=== PATIENT | male | born 1935 | race Caucasian/White ===

== ENCOUNTER → 2023-12-28 12:07 | Outpatient (REF) | payer OTHER, SELFPAY | LOC: RAD 12:07 | PROVIDERS: ATTENDING PHYSICIAN Internal Medicine Hematology & Oncology; FAMILY PHYSICIAN Nurse Practitioner | DX: C34.12 Malignant neoplasm of upper lobe, left bronchus or lung (principal); J91.0 Malignant pleural effusion; C78.2 Secondary malignant neoplasm of pleura | CPT/HCPCS: 71250 ==

== ENCOUNTER → 2023-12-31 12:57 | Outpatient (REF) | payer OTHER, SELFPAY ==
[2023-12-31 13:27] LABS: % Basophils 0.5 % (0-2); % Immature Granulocytes 0.3 % (0-0.5); % Lymphocytes 10.8 % (20.5-51.1); % Monocytes 8.2 % (1.7-9.3); % Neutrophils 79.2 % (42.2-75.2); Absolute Eosinophils 0.1 10^3/uL (0-0.7); Absolute Lymphocytes 0.8 10^3/uL (1.2-3.4); Absolute Monocytes 0.6 10^3/uL (0.1-0.6); Absolute Neutrophils 6.1 10^3/uL (1.4-6.5); Hematocrit 43.6 % (39.0-52.0); Hemoglobin 15.1 g/dL (13.0-18.0); Mean Corp Hgb Conc. 34.6 g/dL (33.0-37.0); Mean Corpuscular Hgb 32.8 pg (27.0-31.0); Mean Corpuscular Volume 94.6 fL (80.0-94.0); Mean Platelet Volume 9.7 fL (7.4-10.4); Nucleated Red Blood Cells % 0 % (-); Platelet Count 191 10^3/uL (130-400); Red Blood Cell Count 4.61 10^6/uL (4.70-6.10); Red Cell Dist. Width 13.3 % (11.5-14.5); White Blood Cell Count 7.8 10^3/uL (4.8-10.8)
[2023-12-31 14:03] LABS: ALT (SGPT) 17 U/L (0-50); AST (SGOT) 27 U/L (17-59); Albumin 4.4 g/dl (3.5-5.0); Alkaline Phosphatase 96 U/L (38-126); Blood Urea Nitrogen 17 mg/dl (9-20); Calcium 10.1 mg/dl (8.4-10.2); Carbon Dioxide 26 mmol/L (22-30); Chloride 105 mmol/L (98-107); Glucose 89 mg/dl (70-99); Potassium 4.5 mmol/L (3.5-5.1); Sodium 141 mmol/L (135-145); Total Bilirubin 1.5 mg/dl (0.2-1.3); eGFR 52.84
[2023-12-31 14:20] LABS: Free T3 2.68 pg/ml (2.77-5.27); Free T4 1.18 ng/dl (0.78-2.19)
[2023-12-31 14:34] LABS: TSH 1.28 uIU/ml (0.47-4.68)
== END ==
LOC: REG 12:57
PROVIDERS: ATTENDING PHYSICIAN Internal Medicine Hematology & Oncology; FAMILY PHYSICIAN Nurse Practitioner
DX: C34.12 Malignant neoplasm of upper lobe, left bronchus or lung (principal); J91.0 Malignant pleural effusion; C78.2 Secondary malignant neoplasm of pleura
CPT/HCPCS: 36415; 80053; 84439; 84443; 84481; 85025

== ENCOUNTER → 2024-01-20 15:06 | Outpatient (REF) | payer OTHER, SELFPAY ==
[2024-01-20 16:28] LABS: % Basophils 0.5 % (0-2); % Eosinophils 1.1 % (0-6); % Immature Granulocytes 0.5 % (0-0.5); % Lymphocytes 13.4 % (20.5-51.1); % Monocytes 8.2 % (1.7-9.3); % Neutrophils 76.3 % (42.2-75.2); Absolute Eosinophils 0.1 10^3/uL (0-0.7); Absolute Lymphocytes 0.8 10^3/uL (1.2-3.4); Absolute Monocytes 0.5 10^3/uL (0.1-0.6); Absolute Neutrophils 4.7 10^3/uL (1.4-6.5); Hematocrit 42.2 % (39.0-52.0); Hemoglobin 14.4 g/dL (13.0-18.0); Mean Corp Hgb Conc. 34.1 g/dL (33.0-37.0); Mean Corpuscular Hgb 32.3 pg (27.0-31.0); Mean Corpuscular Volume 94.6 fL (80.0-94.0); Mean Platelet Volume 10.1 fL (7.4-10.4); Nucleated Red Blood Cells % 0 % (-); Platelet Count 208 10^3/uL (130-400); Red Blood Cell Count 4.46 10^6/uL (4.70-6.10); Red Cell Dist. Width 12.9 % (11.5-14.5); White Blood Cell Count 6.1 10^3/uL (4.8-10.8)
[2024-01-20 17:26] LABS: ALT (SGPT) 22 U/L (0-50); AST (SGOT) 28 U/L (17-59); Alkaline Phosphatase 83 U/L (38-126); Blood Urea Nitrogen 21 mg/dl (9-20); Calcium 9.8 mg/dl (8.4-10.2); Carbon Dioxide 26 mmol/L (22-30); Chloride 102 mmol/L (98-107); Glucose 71 mg/dl (70-99); Potassium 4.3 mmol/L (3.5-5.1); Sodium 140 mmol/L (135-145); Total Bilirubin 0.9 mg/dl (0.2-1.3); Total Protein 6.4 g/dl (6.3-8.2); eGFR 52.84
== END ==
LOC: REG 15:06
PROVIDERS: ATTENDING PHYSICIAN Internal Medicine Hematology & Oncology; FAMILY PHYSICIAN Nurse Practitioner
DX: C34.12 Malignant neoplasm of upper lobe, left bronchus or lung (principal); J91.0 Malignant pleural effusion; C78.2 Secondary malignant neoplasm of pleura
CPT/HCPCS: 36415; 80053; 84443; 85025

== ENCOUNTER → 2024-02-16 12:26 | Outpatient (REF) | payer OTHER, SELFPAY ==
[2024-02-16 15:05] LABS: % Basophils 0.8 % (0-2); % Eosinophils 1.7 % (0-6); % Immature Granulocytes 0.5 % (0-0.5); % Lymphocytes 13.7 % (20.5-51.1); % Monocytes 8.3 % (1.7-9.3); Absolute Basophils 0.1 10^3/uL (0-0.2); Absolute Eosinophils 0.1 10^3/uL (0-0.7); Absolute Lymphocytes 0.9 10^3/uL (1.2-3.4); Absolute Monocytes 0.6 10^3/uL (0.1-0.6); Hematocrit 43.9 % (39.0-52.0); Hemoglobin 15.2 g/dL (13.0-18.0); Mean Corp Hgb Conc. 34.6 g/dL (33.0-37.0); Mean Corpuscular Hgb 30.7 pg (27.0-31.0); Mean Corpuscular Volume 88.7 fL (80.0-94.0); Mean Platelet Volume 10.3 fL (7.4-10.4); Nucleated Red Blood Cells % 0 % (-); Platelet Count 215 10^3/uL (130-400); Red Blood Cell Count 4.95 10^6/uL (4.70-6.10); Red Cell Dist. Width 13.1 % (11.5-14.5); White Blood Cell Count 6.7 10^3/uL (4.8-10.8)
[2024-02-16 15:35] LABS: ALT (SGPT) 26 U/L (0-50); AST (SGOT) 34 U/L (17-59); Albumin 4.2 g/dl (3.5-5.0); Alkaline Phosphatase 83 U/L (38-126); Blood Urea Nitrogen 29 mg/dl (9-20); Calcium 10.1 mg/dl (8.4-10.2); Carbon Dioxide 29 mmol/L (22-30); Chloride 99 mmol/L (98-107); Glucose 82 mg/dl (70-99); Potassium 4.3 mmol/L (3.5-5.1); Sodium 141 mmol/L (135-145); Total Protein 6.7 g/dl (6.3-8.2); eGFR 48.34
[2024-02-16 16:03] LABS: TSH Reflex To Free T4 1.97 uIU/ml (0.47-4.68)
== END ==
LOC: REG 12:26
PROVIDERS: ATTENDING PHYSICIAN Internal Medicine Hematology & Oncology; FAMILY PHYSICIAN Nurse Practitioner
DX: C34.12 Malignant neoplasm of upper lobe, left bronchus or lung (principal); J91.0 Malignant pleural effusion; C78.2 Secondary malignant neoplasm of pleura
CPT/HCPCS: 36415; 80053; 84443; 85025

== ENCOUNTER → 2024-02-22 09:50 | Outpatient (REF) | payer OTHER, SELFPAY | LOC: REG 09:50 | PROVIDERS: ATTENDING PHYSICIAN Internal Medicine Hospice and Palliative Medicine; FAMILY PHYSICIAN Nurse Practitioner | DX: R13.10 Dysphagia, unspecified (principal) | CPT/HCPCS: 74230; 92611 ==

== ENCOUNTER → 2024-03-07 11:32 | Outpatient (REF) | payer OTHER, SELFPAY ==
[2024-03-07 12:03] LABS: % Basophils 0.4 % (0-2); % Eosinophils 0.9 % (0-6); % Immature Granulocytes 0.3 % (0-0.5); % Lymphocytes 13.4 % (20.5-51.1); % Monocytes 7.1 % (1.7-9.3); % Neutrophils 77.9 % (42.2-75.2); Absolute Eosinophils 0.1 10^3/uL (0-0.7); Absolute Lymphocytes 0.9 10^3/uL (1.2-3.4); Absolute Monocytes 0.5 10^3/uL (0.1-0.6); Absolute Neutrophils 5.5 10^3/uL (1.4-6.5); Hematocrit 44.4 % (39.0-52.0); Hemoglobin 15.4 g/dL (13.0-18.0); Mean Corp Hgb Conc. 34.7 g/dL (33.0-37.0); Mean Corpuscular Volume 89.5 fL (80.0-94.0); Mean Platelet Volume 9.6 fL (7.4-10.4); Nucleated Red Blood Cells % 0 % (-); Platelet Count 186 10^3/uL (130-400); Red Blood Cell Count 4.96 10^6/uL (4.70-6.10); Red Cell Dist. Width 13.4 % (11.5-14.5)
[2024-03-07 12:26] LABS: ALT (SGPT) 22 U/L (0-50); AST (SGOT) 27 U/L (17-59); Albumin 4.3 g/dl (3.5-5.0); Alkaline Phosphatase 84 U/L (38-126); Blood Urea Nitrogen 21 mg/dl (9-20); Calcium 10.3 mg/dl (8.4-10.2); Carbon Dioxide 32 mmol/L (22-30); Chloride 102 mmol/L (98-107); Glucose 91 mg/dl (70-99); Potassium 4.3 mmol/L (3.5-5.1); Sodium 144 mmol/L (135-145); Total Protein 6.9 g/dl (6.3-8.2); eGFR 48.34
[2024-03-07 12:45] LABS: Free T3 3.67 pg/ml (2.77-5.27); Free T4 1.03 ng/dl (0.78-2.19)
[2024-03-07 12:58] LABS: TSH 1.64 uIU/ml (0.47-4.68)
== END ==
LOC: REG 11:32
PROVIDERS: ATTENDING PHYSICIAN Internal Medicine Hematology & Oncology; FAMILY PHYSICIAN Nurse Practitioner
DX: C34.12 Malignant neoplasm of upper lobe, left bronchus or lung (principal); J91.0 Malignant pleural effusion; C78.2 Secondary malignant neoplasm of pleura
CPT/HCPCS: 36415; 80053; 84439; 84443; 84481; 85025

== ENCOUNTER → 2024-03-24 12:40 | Outpatient (REF) | payer OTHER, SELFPAY | LOC: HWRAD 12:40 | PROVIDERS: ATTENDING PHYSICIAN Internal Medicine Hematology & Oncology; FAMILY PHYSICIAN Nurse Practitioner | DX: C34.12 Malignant neoplasm of upper lobe, left bronchus or lung (principal); J91.0 Malignant pleural effusion; C78.2 Secondary malignant neoplasm of pleura | CPT/HCPCS: 71250 ==

== ENCOUNTER → 2024-03-29 15:17 | Outpatient (REF) | payer OTHER, SELFPAY ==
[2024-03-29 16:53] LABS: % Basophils 0.7 % (0-2); % Immature Granulocytes 0.6 % (0-0.5); % Lymphocytes 16.6 % (20.5-51.1); % Monocytes 9.1 % (1.7-9.3); Absolute Basophils 0.1 10^3/uL (0-0.2); Absolute Eosinophils 0.1 10^3/uL (0-0.7); Absolute Lymphocytes 1.2 10^3/uL (1.2-3.4); Absolute Monocytes 0.7 10^3/uL (0.1-0.6); Absolute Neutrophils 5.2 10^3/uL (1.4-6.5); Hematocrit 43.9 % (39.0-52.0); Hemoglobin 14.8 g/dL (13.0-18.0); Mean Corp Hgb Conc. 33.7 g/dL (33.0-37.0); Mean Corpuscular Hgb 31.1 pg (27.0-31.0); Mean Corpuscular Volume 92.2 fL (80.0-94.0); Mean Platelet Volume 10.3 fL (7.4-10.4); Nucleated Red Blood Cells % 0 % (-); Platelet Count 202 10^3/uL (130-400); Red Blood Cell Count 4.76 10^6/uL (4.70-6.10); Red Cell Dist. Width 13.7 % (11.5-14.5); White Blood Cell Count 7.2 10^3/uL (4.8-10.8)
[2024-03-29 17:13] LABS: ALT (SGPT) 22 U/L (0-50); AST (SGOT) 30 U/L (17-59); Albumin 4.4 g/dl (3.5-5.0); Alkaline Phosphatase 90 U/L (38-126); Blood Urea Nitrogen 25 mg/dl (9-20); Calcium 9.9 mg/dl (8.4-10.2); Carbon Dioxide 29 mmol/L (22-30); Chloride 103 mmol/L (98-107); Glucose 77 mg/dl (70-99); Potassium 4.7 mmol/L (3.5-5.1); Sodium 142 mmol/L (135-145); Total Bilirubin 0.9 mg/dl (0.2-1.3); Total Protein 6.9 g/dl (6.3-8.2); eGFR 48.34
[2024-03-29 17:29] LABS: Free T4 1.18 ng/dl (0.78-2.19)
[2024-03-29 17:44] LABS: TSH 1.36 uIU/ml (0.47-4.68)
== END ==
LOC: REG 15:17
PROVIDERS: ATTENDING PHYSICIAN Internal Medicine Hematology & Oncology; FAMILY PHYSICIAN Nurse Practitioner
DX: C34.12 Malignant neoplasm of upper lobe, left bronchus or lung (principal); J91.0 Malignant pleural effusion; C78.2 Secondary malignant neoplasm of pleura
CPT/HCPCS: 36415; 80053; 84439; 84443; 84480; 85025

== ENCOUNTER → 2024-04-20 14:56 | Outpatient (REF) | payer OTHER, SELFPAY ==
[2024-04-20 15:48] LABS: % Basophils 0.6 % (0-2); % Eosinophils 1.1 % (0-6); % Immature Granulocytes 0.6 % (0-0.5); % Lymphocytes 17.3 % (20.5-51.1); % Monocytes 8.5 % (1.7-9.3); % Neutrophils 71.9 % (42.2-75.2); Absolute Basophils 0.1 10^3/uL (0-0.2); Absolute Eosinophils 0.1 10^3/uL (0-0.7); Absolute Immature Granulocytes 0.1 10^3/uL (0-0.05); Absolute Lymphocytes 1.4 10^3/uL (1.2-3.4); Absolute Monocytes 0.7 10^3/uL (0.1-0.6); Hematocrit 45.8 % (39.0-52.0); Hemoglobin 15.6 g/dL (13.0-18.0); Mean Corp Hgb Conc. 34.1 g/dL (33.0-37.0); Mean Corpuscular Hgb 31.4 pg (27.0-31.0); Mean Corpuscular Volume 92.2 fL (80.0-94.0); Mean Platelet Volume 9.9 fL (7.4-10.4); Nucleated Red Blood Cells % 0 % (-); Platelet Count 196 10^3/uL (130-400); Red Blood Cell Count 4.97 10^6/uL (4.70-6.10); Red Cell Dist. Width 13.8 % (11.5-14.5); White Blood Cell Count 8.3 10^3/uL (4.8-10.8)
[2024-04-20 16:04] LABS: ALT (SGPT) 28 U/L (0-50); AST (SGOT) 31 U/L (17-59); Albumin 4.3 g/dl (3.5-5.0); Alkaline Phosphatase 88 U/L (38-126); Blood Urea Nitrogen 23 mg/dl (9-20); Calcium 9.9 mg/dl (8.4-10.2); Carbon Dioxide 31 mmol/L (22-30); Chloride 98 mmol/L (98-107); Glucose 57 mg/dl (70-99); Potassium 4.5 mmol/L (3.5-5.1); Sodium 138 mmol/L (135-145); Total Bilirubin 0.9 mg/dl (0.2-1.3); Total Protein 6.9 g/dl (6.3-8.2); eGFR 48.04
[2024-04-20 16:33] LABS: TSH Reflex To Free T4 2.23 uIU/ml (0.47-4.68)
== END ==
LOC: REG 14:56
PROVIDERS: ATTENDING PHYSICIAN Internal Medicine Hematology & Oncology; FAMILY PHYSICIAN Nurse Practitioner
DX: C34.12 Malignant neoplasm of upper lobe, left bronchus or lung (principal); J91.0 Malignant pleural effusion; C78.2 Secondary malignant neoplasm of pleura; J20.9 Acute bronchitis, unspecified
CPT/HCPCS: 36415; 80053; 84443; 85025

== ENCOUNTER → 2024-05-11 13:00 | Outpatient (REF) | payer OTHER, SELFPAY ==
[2024-05-11 13:25] LABS: % Basophils 0.4 % (0-2); % Eosinophils 0.5 % (0-6); % Immature Granulocytes 0.8 % (0-0.5); % Lymphocytes 11.3 % (20.5-51.1); % Monocytes 4.6 % (1.7-9.3); % Neutrophils 82.4 % (42.2-75.2); Absolute Eosinophils 0.1 10^3/uL (0-0.7); Absolute Immature Granulocytes 0.1 10^3/uL (0-0.05); Absolute Lymphocytes 1.1 10^3/uL (1.2-3.4); Absolute Monocytes 0.4 10^3/uL (0.1-0.6); Absolute Neutrophils 7.7 10^3/uL (1.4-6.5); Hemoglobin 15.8 g/dL (13.0-18.0); Mean Corp Hgb Conc. 33.6 g/dL (33.0-37.0); Mean Corpuscular Hgb 31.5 pg (27.0-31.0); Mean Corpuscular Volume 93.6 fL (80.0-94.0); Mean Platelet Volume 9.6 fL (7.4-10.4); Nucleated Red Blood Cells % 0 % (-); Platelet Count 182 10^3/uL (130-400); Red Blood Cell Count 5.02 10^6/uL (4.70-6.10); White Blood Cell Count 9.3 10^3/uL (4.8-10.8)
[2024-05-11 14:16] LABS: ALT (SGPT) 42 U/L (0-50); AST (SGOT) 46 U/L (17-59); Albumin 4.3 g/dl (3.5-5.0); Alkaline Phosphatase 100 U/L (38-126); Blood Urea Nitrogen 23 mg/dl (9-20); Calcium 9.5 mg/dl (8.4-10.2); Carbon Dioxide 29 mmol/L (22-30); Chloride 98 mmol/L (98-107); Glucose 111 mg/dl (70-99); Potassium 4.2 mmol/L (3.5-5.1); Sodium 137 mmol/L (135-145); Total Bilirubin 1.3 mg/dl (0.2-1.3); eGFR 52.51
== END ==
LOC: REG 13:00
PROVIDERS: ATTENDING PHYSICIAN Internal Medicine Hematology & Oncology; FAMILY PHYSICIAN Nurse Practitioner
DX: C34.12 Malignant neoplasm of upper lobe, left bronchus or lung (principal); J91.0 Malignant pleural effusion; C78.2 Secondary malignant neoplasm of pleura; J20.9 Acute bronchitis, unspecified
CPT/HCPCS: 36415; 80053; 85025

== ENCOUNTER 2024-05-23 10:30 | Inpatient (IN) | payer OTHER, SELFPAY ==
[2024-05-20 22:06] VITALS: BP 138/86
[2024-05-20 22:25] LABS: % Basophils 0.5 % (0-2); % Eosinophils 0.2 % (0-6); % Immature Granulocytes 0.5 % (0-0.5); % Lymphocytes 13.8 % (20.5-51.1); % Monocytes 15.8 % (1.7-9.3); % Neutrophils 69.2 % (42.2-75.2); Absolute Lymphocytes 0.8 10^3/uL (1.2-3.4); Absolute Neutrophils 4.2 10^3/uL (1.4-6.5); Hematocrit 42.2 % (39.0-52.0); Hemoglobin 14.5 g/dL (13.0-18.0); Mean Corp Hgb Conc. 34.4 g/dL (33.0-37.0); Mean Corpuscular Hgb 31.8 pg (27.0-31.0); Mean Corpuscular Volume 92.5 fL (80.0-94.0); Nucleated Red Blood Cells % 0 % (-); Platelet Count 147 10^3/uL (130-400); Red Blood Cell Count 4.56 10^6/uL (4.70-6.10); Red Cell Dist. Width 13.7 % (11.5-14.5); White Blood Cell Count 6.1 10^3/uL (4.8-10.8)
[2024-05-20 22:45] LABS: ALT (SGPT) 24 U/L (0-50); AST (SGOT) 32 U/L (17-59); Albumin 4.2 g/dl (3.5-5.0); Alkaline Phosphatase 96 U/L (38-126); Blood Urea Nitrogen 23 mg/dl (9-20); COVID-19 Antigen Positive (Negative); Calcium 9.4 mg/dl (8.4-10.2); Carbon Dioxide 28 mmol/L (22-30); Chloride 101 mmol/L (98-107); Glucose 108 mg/dl (70-99); Potassium 4.5 mmol/L (3.5-5.1); Sodium 138 mmol/L (135-145); Total Bilirubin 1.1 mg/dl (0.2-1.3); Total Protein 6.6 g/dl (6.3-8.2); eGFR 38.06
[2024-05-20 22:49] LABS: Troponin I 0.053 ng/ml
[2024-05-20 23:00] VITALS: BP 160/81
--- NOTE | 2024-05-20 23:11 | ED.GENMED ---
History of Present Illness
General
Chief Complaint: Weakness
Time Seen by Provider: 05/20/24 22:23
History of Present Illness
History of Present Illness:
89-year-old male with history of metastatic lung cancer and prior stroke with resultant left-sided weakness presents to the emergency department for evaluation of severe weakness. Was unable to get himself out of the chair and slid out of the chair
causing him lower himself to the ground. He required assistance to stand up. Typically he ambulates without walker assistance for short distances. Feels as though his left-sided stroke symptoms are acutely worse. This occurred this morning and
then again this evening. Does report an acute worsening of his chronic cough, seems to worsen in the past 2 to 3 weeks, grossly nonproductive at this time. No chest pain or shortness of breath.
Review of Systems
Review of Systems
Allergies reviewed?: Yes
All Other Systems: ROS reviewed and negative except as documented in HPI and ROS
Phy Exam
Physical Exam
Physical Exam:
GEN: Well appearing, NAD, WDWN
HEENT: Oral mucosa moist, no scleral icterus, no nasal congestion
Cardiac: Regular rate
Lung: No respiratory distress, no tachypnea
MSK: No gross deformity or injuries
Skin: Good color, no pallor or jaundice, no rashes
Neuro: AO x3; CN II-XII grossly intact. Left upper extremity 4 out of 5 strength, left lower extremity 4 out of 5 strength in all chong
Psych: Calm, cooperative
Course
Orders/Labs/Results
Orders:
Orders
05/20/24 22:04
ECG [Electrocardiogram (*1)] Urgent
Reason for Study: Fatigue / Weakness
05/20/24 22:05
EKG- Treatment ONCE
05/20/24 22:10
COVID-19 Antigen Urgent
Source: Nasal Swab
Complete Blood Count/With Diff Urgent
Comprehensive Metabolic Panel Urgent
Troponin I Urgent
Influenza A+B Rapid Molecular Urgent
NIKI Source: Nasal Swab
Specimen Description:
05/20/24 23:10
0.9% Sodium Chloride 1000 ml [Nss] 1,000 ml IV BOLUS
05/21/24 00:00
CR Chest - 2 Views Urgent
Reason For Exam: cough
05/21/24 01:00
Flush (0.9% Sodium Chloride) [Flush (Nss)] See Dose Instructions IV PER PROTOCOL
Abnormal Lab Results
05/20/24
22:10
RBC 4.56 L 10^6/uL
(4.70-6.10)
MCH 31.8 H pg
(27.0-31.0)
Absolute Lymphs (auto) 0.8 L 10^3/uL
(1.2-3.4)
Absolute Monos (auto) 1.0 H 10^3/uL
(0.1-0.6)
Lymphocytes % 13.8 L %
(20.5-51.1)
Monocytes % 15.8 H %
(1.7-9.3)
BUN 23 H mg/dl
(9-20)
Creatinine 1.7 H mg/dL
(0.7-1.3)
Glucose 108 H mg/dl
(70-99)
Troponin I 0.053 H* ng/ml
SARS-CoV-2 Antigen Positive A
(Negative)
05/20/24 22:10
05/20/24 22:10
Vital Signs
Initial and Last Documented VS:
Initial Vital Signs
Temp Pulse Resp BP Pulse Ox
98.3 F 89 20 138/86 98
05/20/24 22:06 05/20/24 22:06 05/20/24 22:06 05/20/24 22:06 05/20/24 22:06
Last Documented Vital Signs
Temp Pulse Resp BP Pulse Ox
98.3 F 84 20 149/97 96
05/20/24 22:06 05/21/24 00:10 05/21/24 00:10 05/21/24 00:09 05/20/24 23:54
MDM/Problems Addressed
MDM/Problems Addressed:
Do not suspect an acute stroke rather recrudescence of prior stroke symptoms in the setting of acute COVID. His left-sided weakness is quite mild by my evaluation, ultimately he is anticoagulated thus there would be no change to plan as he is
maximized on medical therapy. He is profoundly weak and unable to care for himself thus he will be admitted to the hospital for further management
*Critical Care Note
Total Time (30-74mins, 75-104mins- exclusive of procedures): Not Applicable
ED Attending Note
-
Portions of this chart may have been created with voice recognition software.� Occasional wrong word or��sound alike� substitutions may have occurred due to the inherent limitations of voice recognition software.
Discharge Plan
Departure
Patient Disposition: Admit
Date of Disposition: 05/21/24
Time of Disposition: 00:23
Presentation/result/management discussed w/ accepting MD/DO: Hospitalist
Discharge Problem:
Weakness, Ambulatory dysfunction, COVID-19
Prescriptions:
No Action
atorvastatin 40 mg Tablet
40 mg PO HS
milk thistle 500 mg Capsule
500 mg PO DAILY
Theragen Tablet
1 tab PO DAILY
cyanocobalamin (vitamin B-12) 500 mcg Tablet
500 mcg PO DAILY
montelukast 10 mg Tablet
10 mg PO HS
furosemide 20 mg Tablet
20 mg PO DAILY
metoprolol succinate 25 mg Tablet Extended Release 24 Hr
25 mg PO DAILY
fluticasone propionate [Flonase] 50 mcg/actuation [place],Suspension
1 spray INTRANASAL DAILY
cholecalciferol (vitamin D3) [Vitamin D3] 50 mcg (2,000 unit) Tablet
50 mcg PO DAILY
azelastine 205.5 mcg (0.15 %) [place],Non-Aerosol
1 spray INTRANASAL DAILY
Eliquis 5 mg Tablet
5 mg PO BID
Glucosamine Chondroitin 550-30-1 mg Capsule
1 cap PO DAILY
Referrals:
Cynthia Wick CRNP [Family Provider] -
Interventions
Interventions:
*Risk Screen - Suicide Last Done: 05/20/24 23:21
*General Assessment Last Done: 05/20/24 22:06
*Neglect/Abuse Screening Last Done: 05/20/24 23:21
ED- Fall Risk Assessment Last Done: 05/20/24 22:16
*ED COVID-19 Vaccine History Last Done: 05/20/24 23:21
ED- Cardiac Assessment Last Done: 05/20/24 22:16
ED- Neurological Assessment Last Done: 05/20/24 22:16
ED- Pulmonary Assessment Last Done: 05/20/24 22:16
Discharge Date and Time
Print Language: SURINAMESE
[2024-05-20] MEDS: NSS 1000 IV (23:13)
[2024-05-20 23:21] VITALS: BMI 24.4
[2024-05-21] VITALS (9 sets, daily range): BP systolic 116–163; BP diastolic 70–97; BMI 24.2
--- NOTE | 2024-05-21 01:20 | HPS.HSE ---
Family Physician
-
Family Physician: Cynthia Wick
Chief Complaint
-
Weakness
History of Present Illness
This is an 89-year-old male with past medical history significant for metastatic non-small cell lung cancer currently on Keytruda, CKD, atrial fibrillation on anticoagulation, moderate aortic regurgitation, prior CVA with mild residual left-sided
weakness presenting to the emergency department with acute episode of weakness and ambulatory dysfunction.
Per family patient was in usual state of health up until getting up this morning. When he woke up he felt very weak and barely able to walk downstairs to meet the rest of the family. Carotid 8-year-old very sleepy and lethargy. He had decreased
p.o. intake. He was unable to ambulate and seemed to have worsening weakness of his left upper and lower extremity. Anytime may was seated a sawant stool slipped out of the chair and unable to balance himself on the chair. Denies any fevers or
chills at home. He has a chronic cough seems to be slightly worsened over the last few weeks but not acutely. Denies feeling short of breath. Denies any chest pain palpitations lightheadedness or dizziness. Has been no increased lower extremity
swelling. He denies any rash.
In the emergency department he was afebrile with a temp of 98.3, and was satting 97% on room air with a blood pressure of 150/97 and a pulse of 84. ECG showed a atrial fibrillation with PVCs rate was 91. Troponin was slightly elevated at 0.053.
CBC was unremarkable. Chemistries notable for a BUN of 23 and a creatinine of 1.7. COVID test was positive.
Chest x-ray shows no acute infiltrates.
Medical History
Past Medical History
Past Medical History: Reports Arrhythmia (Atrial fibrillation on anticoagulation), Cancer (Metastatic non-small cell lung cancer), CVA (CVA with mild residual left-sided weakness), Hypercholesterolemia and Valvular Disease (Mild to moderate aortic
regurgitation)
Past Surgical History: Reports Other
Social History
Tobacco: Former Smoker
Alcohol: None
Drug: None
Personal:
Living: With Family
Employment: Retired
Family History
Family History: Not pertinent
Allergies / Home Medications
Allergies reflects when Allergies were last updated in [facility].
Home Medications with original date entered in [facility]
Allergy/Medication List:
Allergies
Allergy/AdvReac Type Severity Reaction Status Date / Time
No Known Allergies Allergy Unverified 05/20/24 22:05
Home Medications
apixaban 5 mg tablet (Eliquis) 5 mg PO BID 05/20/24
atorvastatin 40 mg tablet 40 mg PO HS 05/20/24
azelastine 205.5 mcg (0.15 %) nasal spray 1 spray intranasal DAILY 05/20/24
cholecalciferol (vitamin D3) 50 mcg (2,000 unit) tablet (Vitamin D3) 50 mcg PO DAILY 05/20/24
cyanocobalamin (vitamin B-12) 500 mcg tablet 500 mcg PO DAILY 05/20/24
fluticasone propionate 50 mcg/actuation nasal spray,suspension 1 spray intranasal DAILY 05/20/24
furosemide 20 mg tablet 20 mg PO DAILY 05/20/24
glucosamine sulf dipot chlr,msm,chond 550 mg-C 30 mg-bladimir 1 mg capsule (Glucosamine Chondroitin) 1 cap PO DAILY 05/20/24
metoprolol succinate 25 mg tablet,extended release 24 hr 25 mg PO DAILY 05/20/24
milk thistle 500 mg capsule 500 mg PO DAILY 05/20/24
montelukast 10 mg tablet 10 mg PO HS 05/20/24
therapeutic multivitamin 1 tab PO DAILY 05/20/24
Review of Systems
-
History Source: Patient and Family
Constitutional: Reports Fatigue
EENT: Reports No Symptoms
Respiratory: Reports No Symptoms
Cardiac: Reports No Symptoms
Abdomen/GI: Reports No Symptoms
: Reports No Symptoms
Musculoskeletal: Reports No Symptoms
Skin: Reports No Symptoms
Neurological: Reports Weakness
Endocrine: Reports No Symptoms
Hematologic/Lymphatic: Reports No Symptoms
Psych: Reports No Symptoms
Physical Exam
Vital Signs
Vital Signs
Temp Pulse Resp BP Pulse Ox
98.3 F 72 23 135/70 95
05/20/24 22:06 05/21/24 00:45 05/21/24 00:45 05/21/24 01:00 05/21/24 00:45
Physical Exam
General: No Apparent Distress; No Conversant
HEENT: NormoCephalic, Anicteric, Moist mucous membranes, Atraumatic, PERRLA and No Ptosis
Respiratory: Clear and Non Labored Respirations; No Wheezes, Rales or Rhonchi
Cardiac: S1/S2 and Irregular Rhythm; No Murmur, Rub, Gallop or Peripheral Edema
Breast: Deferred by me
GI: Soft, Non Tender, Non Distended and Normal Bowel Sounds
Rectal: Deferred by Provider
Genito-urinary: Deferred by me
Musculoskeletal: No Clubbing, No Cyanosis and No Edema
Skin: Warm
Neuro: AO x 3, No Motor Deficits (4/5 weakness in upper and lower extremity), Cranial Nerves Intact and No Sensory Deficits
Hematologic/Lymphatic: No Lymphadenopathy
Psych: Calm
Laboratory Results
-
05/20/24 22:10
05/20/24 22:10
Laboratory Results
Total Bilirubin 1.1 mg/dl (0.2-1.3) 05/20/24 22:10
AST 32 U/L (17-59) 05/20/24 22:10
ALT 24 U/L (0-50) 05/20/24 22:10
Alkaline Phosphatase 96 U/L (38-126) 05/20/24 22:10
Troponin I 0.053 ng/ml H* 05/20/24 22:10
Data Reviewed
-
Diagnostic Radiology: Image Personally Visualized and interpreted
Medical Tests (Nuc Med, Echo, EKG etc): Image Personally Visualized and interpreted
Lab Data: Labs Reviewed by me
Old Records: Reviewed
Impression/Plan
-
IMPRESSION:
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 Has a mild LEYLA. Otherwise labs
stable. His hemodynamically stable and not requiring any oxygen. Mental status is intact. On my examination, he is neurologically intact.
PLAN:
1. COVID 19 - Moderate COVID 19 infection in high risk patient. No hypoxia or pulmonary infiltrates. Has elevated Troponin.
- admit to telemetry
- no oxygen requirement, no indication for steroids
- start paxlovid
- supportive care
- PT eval for weakness in am
2. Non-ischemic myocardial injury - Trop 0.05, no ischemic changes on ECG (PVCs noted). Likley related to COVID 19
- trend troponin
- continue apixaban
- continue statin, and metoprolol
- cardiology consult in am
3. LEYLA on CKD - Cr increase by 0.3 from baseline of 1.4. On low dose furosemide and one day of poor intake
- s/p IV fluids in ED
- hold lasix
- monitor for now
- avoid nephrotoxin
4. AFIB - rate controlled
- continue metoprolol succinate
- continue apixaban @ 2.5 bid x 8 days then resume 5 bid dosing due to paxlovid interaction
DVT PPX - on apixaban
Code Status - DNR
[2024-05-21 02:44] LABS: Troponin I 0.068 ng/ml
[2024-05-21] MEDS: ROBITUSSIN DM 5 ML PO ×3 (04:04→20:21)
--- NOTE | 2024-05-21 04:30 | PTCARENOTE ---
Patient admitted to unit for COVID. Patient is weak and unable to ambulate at this time. At baseline, patient uses a cane or walker at home. Patient is AAOx3, room air but voice is hoarse with some wheezing. VS stable. Hx Afib and currently in Afib
with PVCs, HR 70s. Will review scheduled and PRN medications. Reviewed call alston. Bed alarm in use for safety.
[2024-05-21 08:13] LABS: Hematocrit 40.1 % (39.0-52.0); Hemoglobin 13.9 g/dL (13.0-18.0); Mean Corp Hgb Conc. 34.7 g/dL (33.0-37.0); Mean Corpuscular Hgb 31.8 pg (27.0-31.0); Mean Corpuscular Volume 91.8 fL (80.0-94.0); Platelet Count 141 10^3/uL (130-400); Red Blood Cell Count 4.37 10^6/uL (4.70-6.10); Red Cell Dist. Width 13.7 % (11.5-14.5); White Blood Cell Count 4.5 10^3/uL (4.8-10.8)
[2024-05-21 08:28] LABS: Troponin I 0.095 ng/ml
[2024-05-21 08:35] LABS: Blood Urea Nitrogen 20 mg/dl (9-20); Calcium 8.8 mg/dl (8.4-10.2); Carbon Dioxide 25 mmol/L (22-30); Chloride 105 mmol/L (98-107); Estimated Creatinine Clearance 42 ml/min; Glucose 94 mg/dl (70-99); Sodium 138 mmol/L (135-145); eGFR 52.51
[2024-05-21] MEDS: PAXLOVID 150-100 MG DOSE PACK 1 DOSE PO ×2 (08:58→20:20)
[2024-05-21] MEDS: TOPROL XL 25 MG PO (08:58)
[2024-05-21] MEDS: ELIQUIS 2.5 MG PO ×2 (08:59→20:20)
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
--- NOTE | 2024-05-21 11:17 | W.PN.UPDATE ---
Update Note
Progress Note Update
Seen and examined independent of pulmonary physician. States of increasing amount of cough and mucus production states of right-sided arm pain with coughing. On room air.
General: No Apparent Distress; No Conversant
HEENT: NormoCephalic, Anicteric, Moist mucous membranes, Atraumatic, PERRLA and No Ptosis
Respiratory: Clear and Non Labored Respirations; No Wheezes, Rales or Rhonchi
Cardiac: S1/S2 and Irregular Rhythm; No Murmur, Rub, Gallop or Peripheral Edema
Breast: Deferred by me
GI: Soft, Non Tender, Non Distended and Normal Bowel Sounds
Rectal: Deferred by Provider
Genito-urinary: Deferred by me
Musculoskeletal: No Clubbing, No Cyanosis and No Edema
Skin: Warm
Neuro: AO x 3, No Motor Deficits (4/5 weakness in upper and lower extremity), Cranial Nerves Intact and No Sensory Deficits
Hematologic/Lymphatic: No Lymphadenopathy
Psych: Calm
IMPRESSION:
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 Has a mild LEYLA. Otherwise labs
stable. His hemodynamically stable and not requiring any oxygen. Mental status is intact. On my examination, he is neurologically intact.
PLAN:
COVID 19 - Moderate COVID 19 infection in high risk patient. No hypoxia or pulmonary infiltrates. Has elevated Troponin.
- no oxygen requirement, no indication for steroids
- started on paxlovid on admission
- supportive care
- PT eval for weakness in am
Non-ischemic myocardial injury - Trop 0.05, no ischemic changes on ECG (PVCs noted). Likely related to COVID 19 in setting of elevated Cr
- trend troponin
- continue apixaban
- continue statin, and metoprolol
- cardiology consult
LEYLA on CKD - Cr increase by 0.3 from baseline of 1.4. On low dose furosemide and one day of poor intake
- s/p IV fluids in ED
- hold lasix
- monitor for now
- avoid nephrotoxin
-Cr improved
AFIB - rate controlled unclear chronicity
- continue metoprolol succinate
- continue apixaban @ 2.5 bid x 8 days then resume 5 bid dosing due to paxlovid interaction
Non-small cell cancer of left lung
Hx of prostrate cancer
-follows with [facility]. Received Keytruda in past
DVT PPX - on apixaban
Code Status - DNR
[2024-05-21] MEDS: TESSALON PERLES 200 MG PO ×2 (11:30→22:50)
[2024-05-21] MEDS: TYLENOL 650 MG PO (11:30)
--- NOTE | 2024-05-21 11:34 | PTCARENOTE ---
Addendum entered by Elizabeth Colon RN 05/21/24 13:16:
Repeat oral temp s/p PRN tylenol 98.9F. Patient in chair, states no concerns.
Original Note:
Patient with 100.6F oral temp taken by tech. Patient OOB in chair x2 assist with RW, states no concerns at this time. Patient medicated with PRN MD lai aware. Call alston within reach, patient ringing appropriately.
[2024-05-21 12:31] LABS: Troponin I 0.094 ng/ml
[2024-05-21 13:49] LABS: Urine Albumin Trace (Neg - Trace); Urine Bilirubin Negative (Negative); Urine Character Clear (Clear); Urine Color Yellow; Urine Glucose Negative (Negative); Urine Ketone Negative (Negative); Urine Leukocyte Negative (Negative); Urine Nitrite Negative (Negative); Urine Occult Blood Negative (Negative); Urine Urobilinogen Negative (Neg - 1+)
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
[2024-05-21] MEDS: LIPITOR 40 MG PO (22:49)
[2024-05-21] MEDS: SINGULAIR 10 MG PO (22:50)
[2024-05-22] VITALS (8 sets, daily range): BP systolic 135–158; BP diastolic 80–93; PULSE 72; O2SAT 97
[2024-05-22 06:58] LABS: Blood Urea Nitrogen 23 mg/dl (9-20); Calcium 8.7 mg/dl (8.4-10.2); Carbon Dioxide 26 mmol/L (22-30); Chloride 103 mmol/L (98-107); Estimated Creatinine Clearance 37 ml/min; Glucose 95 mg/dl (70-99); Potassium 4.2 mmol/L (3.5-5.1); Sodium 137 mmol/L (135-145); eGFR 44.23
[2024-05-22 07:07] LABS: % Basophils 0.4 % (0-2); % Eosinophils 0.6 % (0-6); % Immature Granulocytes 0.6 % (0-0.5); % Lymphocytes 19.7 % (20.5-51.1); % Monocytes 14.8 % (1.7-9.3); % Neutrophils 63.9 % (42.2-75.2); Absolute Monocytes 0.8 10^3/uL (0.1-0.6); Absolute Neutrophils 3.3 10^3/uL (1.4-6.5); Hematocrit 40.4 % (39.0-52.0); Hemoglobin 14.1 g/dL (13.0-18.0); Mean Corp Hgb Conc. 34.9 g/dL (33.0-37.0); Mean Corpuscular Hgb 32.3 pg (27.0-31.0); Mean Corpuscular Volume 92.4 fL (80.0-94.0); Mean Platelet Volume 10.3 fL (7.4-10.4); Nucleated Red Blood Cells % 0 % (-); Platelet Count 140 10^3/uL (130-400); Red Blood Cell Count 4.37 10^6/uL (4.70-6.10); Red Cell Dist. Width 13.9 % (11.5-14.5); White Blood Cell Count 5.2 10^3/uL (4.8-10.8)
[2024-05-22] MEDS: PAXLOVID 150-100 MG DOSE PACK 1 DOSE PO ×2 (09:02→21:21)
[2024-05-22] MEDS: TOPROL XL 25 MG PO (09:02)
[2024-05-22] MEDS: ELIQUIS 2.5 MG PO ×2 (09:02→21:21)
[2024-05-22] MEDS: ROBITUSSIN DM 5 ML PO ×2 (09:10→17:40)
--- NOTE | 2024-05-22 12:24 | W.PN.HOSP.TC ---
Today's Communication/Plan
-
cont paxlovid
reduce dose of eliquis
PT/OT
monitor diet tolerance
trend cr
Assessment / Plan
Assessment / Plan
General: No Apparent Distress; No Conversant
HEENT: NormoCephalic, Anicteric, Moist mucous membranes, Atraumatic, PERRLA and No Ptosis
Respiratory: Clear and Non Labored Respirations; No Wheezes, Rales or Rhonchi
Cardiac: S1/S2 and Irregular Rhythm; No Murmur, Rub, Gallop or Peripheral Edema
Breast: Deferred by me
GI: Soft, Non Tender, Non Distended and Normal Bowel Sounds
Rectal: Deferred by Provider
Genito-urinary: Deferred by me
Musculoskeletal: No Clubbing, No Cyanosis and No Edema
Skin: Warm
Neuro: AO x 3, No Motor Deficits (4/5 weakness in upper and lower extremity), Cranial Nerves Intact and No Sensory Deficits
Hematologic/Lymphatic: No Lymphadenopathy
Psych: Calm
IMPRESSION:
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 Has a mild LEYLA. Otherwise labs
stable. His hemodynamically stable and not requiring any oxygen. Mental status is intact. On my examination, he is neurologically intact.
PLAN:
COVID 19 - Moderate COVID 19 infection in high risk patient. No hypoxia or pulmonary infiltrates. Has elevated Troponin.
- no oxygen requirement, no indication for steroids
- started on paxlovid on admission
- supportive care
- PT/OT
Non-ischemic myocardial injury - , no ischemic changes on ECG (PVCs noted). Likely related to COVID 19 in setting of elevated Cr
- trop downtrended. No chest pain. Never had chest pain.
- continue apixaban
- continue statin, and metoprolol
- cardiology consult
LEYLA on CKD - Cr increase by 0.3 from baseline of 1.4. On low dose furosemide and one day of poor intake
- s/p IV fluids in ED
- hold lasix for now
- monitor for now
- avoid nephrotoxin
-Cr improved
AFIB - rate controlled unclear chronicity
- continue metoprolol succinate
- continue apixaban @ 2.5 bid x 8 days then resume 5 bid dosing due to paxlovid interaction
Non-small cell cancer of left lung
Hx of prostrate cancer
-follows with [facility]. Received Keytruda in past
DVT PPX - on apixaban
Code Status - DNR
PT/OT
Anticipated Discharge: > 48 hours
Subjective/Interval History
-
Date of Service: May 22, 2024
states tolerated all breakfast
remains with cough
afebrile
no chest pain
Objective Data
-
Labs:
Laboratory Results
05/22/24
05:53
WBC 5.2
Hgb 14.1
Hct 40.4
Plt Count 140
Sodium 137
Potassium 4.2
Chloride 103
Carbon Dioxide 26
BUN 23 H
Creatinine 1.5 H
Glucose 95
Calcium 8.7
Vital Signs:
Vital Signs
Temp Pulse Resp BP Pulse Ox
97.9 F 76 20 156/91 96
05/22/24 11:49 05/22/24 11:49 05/22/24 11:49 05/22/24 11:49 05/22/24 11:49
I&O
05/21/24 05/22/24 05/23/24
06:59 06:59 06:59
Intake Total 1260 / 1260
Output Total 500 / 500
Balance 760 / 760
Data Reviewed
-
Total Time Spent with Patient (in minutes): 55
[2024-05-22] MEDS: LIPITOR 40 MG PO (21:21)
[2024-05-22] MEDS: SINGULAIR 10 MG PO (21:22)
[2024-05-23 02:37] VITALS: BP 138/82
[2024-05-23 07:19] VITALS: BP 139/89
[2024-05-23] MEDS: TOPROL XL 25 MG PO (08:25)
[2024-05-23] MEDS: ELIQUIS 2.5 MG PO (08:25)
[2024-05-23] MEDS: PAXLOVID 150-100 MG DOSE PACK 1 DOSE PO (08:25)
[2024-05-23] MEDS: TESSALON PERLES 200 MG PO (08:26)
[2024-05-23 08:27] LABS: % Basophils 0.2 % (0-2); % Eosinophils 4.2 % (0-6); % Immature Granulocytes 0.5 % (0-0.5); % Lymphocytes 21.9 % (20.5-51.1); % Monocytes 13.6 % (1.7-9.3); % Neutrophils 59.6 % (42.2-75.2); Absolute Eosinophils 0.2 10^3/uL (0-0.7); Absolute Lymphocytes 0.9 10^3/uL (1.2-3.4); Absolute Monocytes 0.6 10^3/uL (0.1-0.6); Absolute Neutrophils 2.5 10^3/uL (1.4-6.5); Hematocrit 41.2 % (39.0-52.0); Hemoglobin 14.1 g/dL (13.0-18.0); Mean Corp Hgb Conc. 34.2 g/dL (33.0-37.0); Mean Corpuscular Hgb 31.8 pg (27.0-31.0); Mean Corpuscular Volume 92.8 fL (80.0-94.0); Nucleated Red Blood Cells % 0 % (-); Platelet Count 136 10^3/uL (130-400); Red Blood Cell Count 4.44 10^6/uL (4.70-6.10); Red Cell Dist. Width 13.8 % (11.5-14.5); White Blood Cell Count 4.3 10^3/uL (4.8-10.8)
--- NOTE | 2024-05-23 08:27 | PTCARENOTE ---
pt set up with breakfast this AM. PO meds given and prn tessalons given for severe productive cough. see MAR for proper documentation
[2024-05-23 08:47] LABS: Blood Urea Nitrogen 24 mg/dl (9-20); Calcium 8.7 mg/dl (8.4-10.2); Carbon Dioxide 27 mmol/L (22-30); Chloride 102 mmol/L (98-107); Estimated Creatinine Clearance 42 ml/min; Glucose 89 mg/dl (70-99); Sodium 137 mmol/L (135-145); eGFR 52.51
--- NOTE | 2024-05-23 10:10 | CM ---
Addendum entered by Nettie Perez RN 05/23/24 15:16:
IMM reviewed.
Original Note:
Reviewed the chart notes and left voice message for the patient's son regarding [facility] referral being sent via [facility]. CM continues to be available to patient/family and is monitoring medical plan for needs at discharge.
Plan: Discharge to home with [facility] services when medically stable.
--- NOTE | 2024-05-23 10:26 | W.PN.HOSP.TC ---
Today's Communication/Plan
-
restart lasix
monitor cr
start dipo
Assessment / Plan
Assessment / Plan
General: No Apparent Distress; No Conversant
HEENT: NormoCephalic, Anicteric, Moist mucous membranes, Atraumatic, PERRLA and No Ptosis
Respiratory: Clear and Non Labored Respirations; No Wheezes, Rales or Rhonchi
Cardiac: S1/S2 and Irregular Rhythm; No Murmur, Rub, Gallop or Peripheral Edema
Breast: Deferred by me
GI: Soft, Non Tender, Non Distended and Normal Bowel Sounds
Rectal: Deferred by Provider
Genito-urinary: Deferred by me
Musculoskeletal: No Clubbing, No Cyanosis and No Edema
Skin: Warm
Neuro: AO x 3, No Motor Deficits Cranial Nerves Intact and No Sensory Deficits
Hematologic/Lymphatic: No Lymphadenopathy
Psych: Calm
IMPRESSION:
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 Has a mild LEYLA. Otherwise labs
stable. His hemodynamically stable and not requiring any oxygen. Mental status is intact. On my examination, he is neurologically intact.
PLAN:
COVID 19 - Moderate COVID 19 infection in high risk patient. No hypoxia or pulmonary infiltrates. Has elevated Troponin.
- no oxygen requirement, no indication for steroids
- started on paxlovid on admission
- supportive care
- PT/OT
Non-ischemic myocardial injury - , no ischemic changes on ECG (PVCs noted). Likely related to COVID 19 in setting of elevated Cr
- trop downtrended. No chest pain. Never had chest pain.
- continue apixaban
- continue statin, and metoprolol
- cardiology consult
LEYLA on CKD - Cr increase by 0.3 from baseline of 1.4. On low dose furosemide and one day of poor intake
- s/p IV fluids in ED
- restart lasix for now
- monitor for now
- avoid nephrotoxin
-Cr improved
AFIB - rate controlled unclear chronicity
- continue metoprolol succinate
- continue apixaban @ 2.5 bid then resume 5 bid dosing due to paxlovid interaction and recommended to dose by 50%
Non-small cell cancer of left lung
Hx of prostrate cancer
-follows with [facility]. Received Keytruda in past
DVT PPX - on apixaban
Code Status - DNR
PT/OT
Anticipated Discharge: Within 24 hours
Subjective/Interval History
-
Date of Service: May 23, 2024
states cough is improving
feeling weak
Objective Data
-
Labs:
Laboratory Results
05/23/24
07:51
WBC 4.3 L
Hgb 14.1
Hct 41.2
Plt Count 136
Sodium 137
Potassium 4.0
Chloride 102
Carbon Dioxide 27
BUN 24 H
Creatinine 1.3
Glucose 89
Calcium 8.7
Vital Signs:
Vital Signs
Temp Pulse Resp BP Pulse Ox
97.8 F 71 16 139/89 97
05/23/24 07:19 05/23/24 07:19 05/23/24 07:19 05/23/24 08:25 05/23/24 07:19
I&O
05/22/24 05/23/24 05/24/24
06:59 06:59 06:59
Intake Total 1260 / 1260 1140 / 1140
Output Total 500 / 500 720 / 720
Balance 760 / 760 420 / 420
[2024-05-23 11:41] VITALS: BP 138/80
[2024-05-23 12:44] VITALS: BP 143/87; PULSE 80; O2SAT 97
--- NOTE | 2024-05-23 13:08 | W.PN.CARDCBS ---
Today's Communication / Plan
-
Stable cardiac status
Would resume Eliquis 5 mg twice daily after Paxlovid rather than 2.5 twice daily pending creatinine of less than 1.5
We will sign off
Impression / Plan
-
PCP: Cynthia Wick
Primary olive grader, Partha Saini
Impression:
Weakness
COVID-19
Permanent atrial fibrillation on OAC Eliquis
Stage IV metastatic non-small cell lung cancer on Keytruda
Chronic kidney disease
CVA 2020
Lower extremity edema
Moderate aortic insufficiency
Previous cardiovascular testing:
05/2022: Echo: EF 65%, LVH, moderate AI, PASP 40
Plan:
1. Elevated troponin
Peak troponin was 0.095, suspect non-ACS related myocardial injury in the setting of COVID, would not pursue further
2. A-fib
Rate is controlled. Eliquis is currently 2.5 mg twice daily given that patient is on Paxlovid. Creatinine is borderline for dose adjustment. After Paxlovid, resume Eliquis 5 mg twice daily if creatinine less than 1.5.
3. COVID-19
Improving anticipated discharge within 24 hours
4. Acute kidney injury on chronic kidney disease.
Peak creatinine was 1.7, now 1.3. Patient will need higher dose of Eliquis if creatinine remains below 1.4.
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
Subjective
Date of Service: May 23, 2024:
Attempted to call patient, no answer
PMH/PSH/SH/FH: Reviewed
Current meds: Apixaban 2.5 twice daily, atorvastatin 40 mg a day, metoprolol ER 25 mg daily, Singulair, Paxlovid,, furosemide 20 mg daily
138/80, resp rate 16, pulse 68, afebrile
Patient not examined related to COVID protocols
Creatinine is 1.3, BUN is 24, hemoglobin is 14.1
Objective
Labs:
05/23/24 07:51
05/23/24 07:51
Labs
Hgb 14.1 g/dL (13.0-18.0) 05/23/24 07:51
Hct 41.2 % (39.0-52.0) 05/23/24 07:51
Plt Count 136 10^3/uL (130-400) 05/23/24 07:51
Sodium 137 mmol/L (135-145) 05/23/24 07:51
Potassium 4.0 mmol/L (3.5-5.1) 05/23/24 07:51
BUN 24 mg/dl (9-20) H 05/23/24 07:51
Creatinine 1.3 mg/dL (0.7-1.3) 05/23/24 07:51
Glucose 89 mg/dl (70-99) 05/23/24 07:51
Troponins
05/20/24 05/21/24 05/21/24
22:10 02:14 07:53
Troponin I 0.053 H* 0.068 H* D 0.095 H* D
05/21/24
11:51
Troponin I 0.094 H*
Vital Signs and I&O:
Vital Signs
Temp Pulse Resp BP Pulse Ox
36.5 C 68 16 138/80 97
05/23/24 11:41 05/23/24 11:41 05/23/24 11:41 05/23/24 11:41 05/23/24 11:54
Vital Signs
Temp Pulse Resp BP Pulse Ox
36.5 C 68 16 138/80 97
05/23/24 11:41 05/23/24 11:41 05/23/24 11:41 05/23/24 11:41 05/23/24 11:54
Intake & Output
05/21/24 05/22/24 05/23/2405/24/25
07:59 07:59 07:59 07:59
Intake Total 1260 / 1260 1140 / 1140
Output Total 500 / 500 720 / 720
Balance 760 / 760 420 / 420
--- NOTE | 2024-05-23 13:47 | VNURNOTE ---
Chart reviewed. Home Health Liaison spoke with patient's son to discuss [facility] nurse/therapy, visits, schedule and homebound status. He is familiar with [facility] and is agreeable and understands that visits at home will be 2-3 x per week to assess and
teach medical management. Son Neo is aware that [facility] will contact them for start of care in 1-2 days after discharge from .
[facility] referral accepted in [facility].
[2024-05-23 14:58] VITALS: BP 133/81
--- NOTE | 2024-05-23 15:10 | W.DCSUMMARY ---
Discharge Summary
Discharge Data
Date of Admission: 05/23/24
Date of Discharge: 05/23/24
-
Pending Results: No
Hospital Course
89-year-old male past medical history of atrial fibrillation, chronic HFrEF who is presenting from home with weakness.� Patient was found to have COVID-19.� Patient was started on Paxlovid.� As patient was on Paxlovid Eliquis dose was decreased by
50%.� Patient also with elevated troponin and cardiology evaluated patient.� Cardiology stated of nonischemic myocardial injury no further workup. Patient was found to have LEYLA on CKD which improved with IV fluid resuscitation and improvement in
p.o. intake.� Patient symptomatically improved.� Patient was not on oxygen.� Patient was afebrile.� Patient was eval by physical and Occupational Therapy and be discharged home.
Discharge Plan
-
Patient Disposition: Home with Home Care
Discharge Diagnosis/Procedures: Acute COVID-19 infection
Nonischemic myocardial injury
Acute kidney injury on chronic kidney disease
Condition: Fair
Diet: 2 Gram Sodium and Restrict fluids to 48 oz
Activity: With assistance and As tolerated
Driving Restrictions: No driving
Other Services: [facility]
Activity Restrictions/Additional Instructions:
Take Eliquis 2.5mg (1/2 tab of 5mg) while on Paxlovid. You can resume Eliquis 5mg BID once paxlovid course is completed.
Referrals:
Cynthia Wick CRNP [Family Provider] - in less than 1 week
Additional Discharge Medication Instructions: Take Eliquis 2.5mg (1/2 tab of 5mg) while on Paxlovid. You can resume Eliquis 5mg BID once paxlovid course is completed.
Prescriptions:
New
benzonatate 100 mg Capsule
200 mg PO TIDPRN PRN (Reason: severe cough) Qty: 20 0RF
Eliquis 2.5 mg Tablet
2.5 mg PO BID Qty: 5 0RF
Paxlovid 150-100 mg Tablets,Dose Pack
See Rx Instructions .ROUTE .COMPLEX Qty: 20 0RF
Rx Instructions:
1 tablet each BID for 5 additional doses only.
Continued
atorvastatin 40 mg Tablet
40 mg PO HS
therapeutic multivitamin Tablet
1 tab PO DAILY
cyanocobalamin (vitamin B-12) 500 mcg Tablet
500 mcg PO DAILY
montelukast 10 mg Tablet
10 mg PO HS
furosemide 20 mg Tablet
20 mg PO DAILY
metoprolol succinate 25 mg Tablet Extended Release 24 Hr
25 mg PO DAILY
fluticasone propionate 50 mcg/actuation Estelline,Suspension
1 spray INTRANASAL DAILY
cholecalciferol (vitamin D3) [Vitamin D3] 50 mcg (2,000 unit) Tablet
50 mcg PO DAILY
azelastine 205.5 mcg (0.15 %) Estelline,Non-Aerosol
1 spray INTRANASAL DAILY
Glucosamine Chondroitin 550-30-1 mg Capsule
1 cap PO DAILY
Held
milk thistle 500 mg Capsule
500 mg PO DAILY
Hold Instructions: Resume on 05/30/24.
Eliquis 5 mg Tablet
5 mg PO BID
Hold Instructions: Resume on 05/26/24.
Discharge Orders:
Discharge Patient (As Directed); Ordered 05/23/24
Ordered By: Lance Frausto
Discharge Date and Time
Print Language: CHINESE
--- NOTE | 2024-05-23 15:43 | PTCARENOTE ---
pt discharged home with son. discharge instructions done at bedside with teach back pertaining to eliquis dose and paxlovid administration. IV access d/c.
== END 2024-05-23 16:33 | disposition home health service (06) | DRG 178 ==
LOC: 2 NORTH 10:30
PROVIDERS: ADMITTING PHYSICIAN Internal Medicine; ATTENDING PHYSICIAN Hospitalist; CONSULT PHYSICIAN Internal Medicine Cardiovascular Disease; EMERGENCY PHYSICIAN Emergency Medicine; FAMILY PHYSICIAN Nurse Practitioner
DX: U07.1 COVID-19 (principal); C34.92 Malignant neoplasm of unspecified part of left bronchus or lung; I48.21 Permanent atrial fibrillation; I5A Non-ischemic myocardial injury (non-traumatic); N17.9 Acute kidney failure, unspecified; I50.22 Chronic systolic (congestive) heart failure; I69.354 Hemiplegia and hemiparesis following cerebral infarction affecting left non-dominant side; Z79.01 Long term (current) use of anticoagulants; N18.9 Chronic kidney disease, unspecified; Z66 Do not resuscitate; Z87.891 Personal history of nicotine dependence; I35.1 Nonrheumatic aortic (valve) insufficiency
CPT/HCPCS: 71046; 80048; 80053; 81003; 84484; 85025; 85027; 87502; 87811; 93005; 96360; 97161; 97166; 97530; 99285

== ENCOUNTER → 2024-06-01 12:17 | Outpatient (REF) | payer OTHER, SELFPAY ==
[2024-06-01 13:30] LABS: % Basophils 0.4 % (0-2); % Eosinophils 0.6 % (0-6); % Immature Granulocytes 0.7 % (0-0.5); % Lymphocytes 14.6 % (20.5-51.1); % Neutrophils 70.7 % (42.2-75.2); Absolute Immature Granulocytes 0.1 10^3/uL (0-0.05); Absolute Monocytes 0.9 10^3/uL (0.1-0.6); Absolute Neutrophils 4.9 10^3/uL (1.4-6.5); Hematocrit 42.2 % (39.0-52.0); Hemoglobin 14.7 g/dL (13.0-18.0); Mean Corp Hgb Conc. 34.8 g/dL (33.0-37.0); Mean Corpuscular Volume 91.7 fL (80.0-94.0); Nucleated Red Blood Cells % 0 % (-); Platelet Count 227 10^3/uL (130-400); Red Cell Dist. Width 13.4 % (11.5-14.5)
[2024-06-01 14:57] LABS: ALT (SGPT) 19 U/L (0-50); AST (SGOT) 26 U/L (17-59); Albumin 3.8 g/dl (3.5-5.0); Alkaline Phosphatase 94 U/L (38-126); Blood Urea Nitrogen 23 mg/dl (9-20); Carbon Dioxide 27 mmol/L (22-30); Chloride 104 mmol/L (98-107); Glucose 81 mg/dl (70-99); Potassium 4.5 mmol/L (3.5-5.1); Sodium 140 mmol/L (135-145); Total Bilirubin 0.7 mg/dl (0.2-1.3); Total Protein 6.1 g/dl (6.3-8.2)
[2024-06-01 15:25] LABS: eGFR 52.51
== END ==
LOC: REG 12:17
PROVIDERS: ATTENDING PHYSICIAN Internal Medicine Hematology & Oncology; FAMILY PHYSICIAN Nurse Practitioner
DX: C34.12 Malignant neoplasm of upper lobe, left bronchus or lung (principal); J91.0 Malignant pleural effusion; C78.2 Secondary malignant neoplasm of pleura; J20.9 Acute bronchitis, unspecified
CPT/HCPCS: 36415; 80053; 85025

== ENCOUNTER → 2024-06-22 11:53 | Outpatient (REF) | payer OTHER, SELFPAY ==
[2024-06-22 14:10] LABS: % Basophils 0.6 % (0-2); % Eosinophils 1.1 % (0-6); % Immature Granulocytes 0.5 % (0-0.5); % Lymphocytes 13.7 % (20.5-51.1); % Neutrophils 76.1 % (42.2-75.2); Absolute Eosinophils 0.1 10^3/uL (0-0.7); Absolute Lymphocytes 0.9 10^3/uL (1.2-3.4); Absolute Monocytes 0.5 10^3/uL (0.1-0.6); Absolute Neutrophils 5.1 10^3/uL (1.4-6.5); Hemoglobin 14.4 g/dL (13.0-18.0); Mean Corp Hgb Conc. 33.5 g/dL (33.0-37.0); Mean Corpuscular Hgb 31.9 pg (27.0-31.0); Mean Corpuscular Volume 95.3 fL (80.0-94.0); Mean Platelet Volume 10.3 fL (7.4-10.4); Nucleated Red Blood Cells % 0 % (-); Platelet Count 189 10^3/uL (130-400); Red Blood Cell Count 4.51 10^6/uL (4.70-6.10); Red Cell Dist. Width 13.9 % (11.5-14.5); White Blood Cell Count 6.7 10^3/uL (4.8-10.8)
[2024-06-22 14:40] LABS: ALT (SGPT) 26 U/L (0-50); AST (SGOT) 32 U/L (17-59); Albumin 3.9 g/dl (3.5-5.0); Alkaline Phosphatase 92 U/L (38-126); Blood Urea Nitrogen 22 mg/dl (9-20); Calcium 9.5 mg/dl (8.4-10.2); Carbon Dioxide 29 mmol/L (22-30); Chloride 103 mmol/L (98-107); Glucose 61 mg/dl (70-99); Potassium 4.3 mmol/L (3.5-5.1); Sodium 140 mmol/L (135-145); Total Bilirubin 0.9 mg/dl (0.2-1.3); Total Protein 6.3 g/dl (6.3-8.2); eGFR 44.23
[2024-06-22 15:45] LABS: TSH Reflex To Free T4 1.99 uIU/ml (0.47-4.68)
== END ==
LOC: REG 11:53
PROVIDERS: ATTENDING PHYSICIAN Internal Medicine Hematology & Oncology; FAMILY PHYSICIAN Nurse Practitioner
DX: C34.12 Malignant neoplasm of upper lobe, left bronchus or lung (principal); J91.0 Malignant pleural effusion; C78.2 Secondary malignant neoplasm of pleura; J20.9 Acute bronchitis, unspecified
CPT/HCPCS: 36415; 80053; 84443; 85025

== ENCOUNTER → 2024-07-20 14:21 | Outpatient (REF) | payer OTHER, SELFPAY ==
[2024-07-20 15:49] LABS: % Basophils 0.5 % (0-2); % Eosinophils 0.8 % (0-6); % Immature Granulocytes 0.3 % (0-0.5); % Lymphocytes 12.2 % (20.5-51.1); % Neutrophils 77.2 % (42.2-75.2); Absolute Eosinophils 0.1 10^3/uL (0-0.7); Absolute Lymphocytes 0.8 10^3/uL (1.2-3.4); Absolute Monocytes 0.6 10^3/uL (0.1-0.6); Absolute Neutrophils 5.1 10^3/uL (1.4-6.5); Hematocrit 42.4 % (39.0-52.0); Hemoglobin 14.4 g/dL (13.0-18.0); Mean Corpuscular Hgb 32.2 pg (27.0-31.0); Mean Corpuscular Volume 94.9 fL (80.0-94.0); Mean Platelet Volume 10.1 fL (7.4-10.4); Nucleated Red Blood Cells % 0 % (-); Platelet Count 189 10^3/uL (130-400); Red Blood Cell Count 4.47 10^6/uL (4.70-6.10); Red Cell Dist. Width 13.3 % (11.5-14.5); White Blood Cell Count 6.6 10^3/uL (4.8-10.8)
[2024-07-20 15:57] LABS: ALT (SGPT) 17 U/L (0-50); AST (SGOT) 23 U/L (17-59); Albumin 3.8 g/dl (3.5-5.0); Alkaline Phosphatase 96 U/L (38-126); Blood Urea Nitrogen 25 mg/dl (9-20); Calcium 9.9 mg/dl (8.4-10.2); Carbon Dioxide 28 mmol/L (22-30); Chloride 103 mmol/L (98-107); Glucose 133 mg/dl (70-99); Potassium 4.6 mmol/L (3.5-5.1); Sodium 137 mmol/L (135-145); Total Bilirubin 1.4 mg/dl (0.2-1.3); Total Protein 6.3 g/dl (6.3-8.2); eGFR 48.04
[2024-07-20 16:07] LABS: Free T4 1.16 ng/dl (0.78-2.19)
[2024-07-23 03:08] LABS: Total T3 (Sendout) 77 ng/dL (80-200)
== END ==
LOC: REG 14:21
PROVIDERS: ATTENDING PHYSICIAN Internal Medicine Hematology & Oncology; FAMILY PHYSICIAN Nurse Practitioner
DX: C34.12 Malignant neoplasm of upper lobe, left bronchus or lung (principal); J91.0 Malignant pleural effusion; C78.2 Secondary malignant neoplasm of pleura; J20.9 Acute bronchitis, unspecified
CPT/HCPCS: 36415; 80053; 84439; 84443; 84480; 85025

== ENCOUNTER → 2024-08-10 13:30 | Outpatient (REF) | payer OTHER, SELFPAY ==
[2024-08-10 14:38] LABS: % Basophils 0.6 % (0-2); % Eosinophils 1.4 % (0-6); % Immature Granulocytes 0.3 % (0-0.5); % Lymphocytes 14.3 % (20.5-51.1); % Monocytes 9.2 % (1.7-9.3); % Neutrophils 74.2 % (42.2-75.2); Absolute Basophils 0.1 10^3/uL (0-0.2); Absolute Eosinophils 0.1 10^3/uL (0-0.7); Absolute Lymphocytes 1.2 10^3/uL (1.2-3.4); Absolute Monocytes 0.8 10^3/uL (0.1-0.6); Absolute Neutrophils 6.4 10^3/uL (1.4-6.5); Hematocrit 41.7 % (39.0-52.0); Hemoglobin 14.2 g/dL (13.0-18.0); Mean Corp Hgb Conc. 34.1 g/dL (33.0-37.0); Mean Corpuscular Hgb 31.7 pg (27.0-31.0); Mean Corpuscular Volume 93.1 fL (80.0-94.0); Mean Platelet Volume 9.8 fL (7.4-10.4); Nucleated Red Blood Cells % 0 % (-); Platelet Count 223 10^3/uL (130-400); Red Blood Cell Count 4.48 10^6/uL (4.70-6.10); White Blood Cell Count 8.6 10^3/uL (4.8-10.8)
[2024-08-10 15:46] LABS: ALT (SGPT) 19 U/L (0-50); AST (SGOT) 25 U/L (17-59); Albumin 4.2 g/dl (3.5-5.0); Alkaline Phosphatase 117 U/L (38-126); Blood Urea Nitrogen 24 mg/dl (9-20); Calcium 10.5 mg/dl (8.4-10.2); Carbon Dioxide 29 mmol/L (22-30); Chloride 104 mmol/L (98-107); Glucose 75 mg/dl (70-99); Potassium 4.6 mmol/L (3.5-5.1); Sodium 143 mmol/L (135-145); Total Bilirubin 1.1 mg/dl (0.2-1.3); Total Protein 6.9 g/dl (6.3-8.2); eGFR 48.04
[2024-08-10 16:16] LABS: TSH Reflex To Free T4 2.17 uIU/ml (0.47-4.68)
== END ==
LOC: REG 13:30
PROVIDERS: ATTENDING PHYSICIAN Internal Medicine Hematology & Oncology; FAMILY PHYSICIAN Nurse Practitioner
DX: C34.12 Malignant neoplasm of upper lobe, left bronchus or lung (principal); J91.0 Malignant pleural effusion; C78.2 Secondary malignant neoplasm of pleura; J20.9 Acute bronchitis, unspecified
CPT/HCPCS: 36415; 80053; 84443; 85025

== ENCOUNTER → 2024-08-31 13:41 | Outpatient (REF) | payer OTHER, SELFPAY ==
[2024-08-31 14:11] LABS: % Basophils 0.7 % (0-2); % Eosinophils 1.2 % (0-6); % Immature Granulocytes 0.3 % (0-0.5); % Monocytes 8.7 % (1.7-9.3); % Neutrophils 72.1 % (42.2-75.2); Absolute Basophils 0.1 10^3/uL (0-0.2); Absolute Eosinophils 0.1 10^3/uL (0-0.7); Absolute Lymphocytes 1.3 10^3/uL (1.2-3.4); Absolute Monocytes 0.7 10^3/uL (0.1-0.6); Absolute Neutrophils 5.5 10^3/uL (1.4-6.5); Hematocrit 41.1 % (39.0-52.0); Hemoglobin 13.9 g/dL (13.0-18.0); Mean Corp Hgb Conc. 33.8 g/dL (33.0-37.0); Mean Corpuscular Hgb 31.5 pg (27.0-31.0); Mean Corpuscular Volume 93.2 fL (80.0-94.0); Mean Platelet Volume 9.7 fL (7.4-10.4); Nucleated Red Blood Cells % 0 % (-); Platelet Count 180 10^3/uL (130-400); Red Blood Cell Count 4.41 10^6/uL (4.70-6.10); Red Cell Dist. Width 13.2 % (11.5-14.5); White Blood Cell Count 7.7 10^3/uL (4.8-10.8)
[2024-08-31 14:29] LABS: ALT (SGPT) 21 U/L (0-50); AST (SGOT) 27 U/L (17-59); Albumin 4.2 g/dl (3.5-5.0); Alkaline Phosphatase 85 U/L (38-126); Blood Urea Nitrogen 21 mg/dl (9-20); Calcium 9.9 mg/dl (8.4-10.2); Carbon Dioxide 27 mmol/L (22-30); Chloride 103 mmol/L (98-107); Glucose 97 mg/dl (70-99); Sodium 142 mmol/L (135-145); Total Bilirubin 1.1 mg/dl (0.2-1.3); Total Protein 6.9 g/dl (6.3-8.2); eGFR 52.51
[2024-08-31 14:59] LABS: TSH Reflex To Free T4 1.76 uIU/ml (0.47-4.68)
== END ==
LOC: REG 13:41
PROVIDERS: ATTENDING PHYSICIAN Internal Medicine Hematology & Oncology; FAMILY PHYSICIAN Nurse Practitioner
DX: C34.12 Malignant neoplasm of upper lobe, left bronchus or lung (principal); J91.0 Malignant pleural effusion; C78.2 Secondary malignant neoplasm of pleura; J20.9 Acute bronchitis, unspecified
CPT/HCPCS: 36415; 80053; 84443; 85025

== ENCOUNTER → 2024-09-21 13:28 | Outpatient (REF) | payer OTHER, SELFPAY ==
[2024-09-21 13:59] LABS: % Basophils 0.5 % (0-2); % Eosinophils 0.7 % (0-6); % Immature Granulocytes 0.3 % (0-0.5); % Lymphocytes 13.2 % (20.5-51.1); % Monocytes 7.7 % (1.7-9.3); % Neutrophils 77.6 % (42.2-75.2); Absolute Eosinophils 0.1 10^3/uL (0-0.7); Absolute Monocytes 0.6 10^3/uL (0.1-0.6); Absolute Neutrophils 5.8 10^3/uL (1.4-6.5); Hematocrit 44.2 % (39.0-52.0); Hemoglobin 15.2 g/dL (13.0-18.0); Mean Corp Hgb Conc. 34.4 g/dL (33.0-37.0); Mean Corpuscular Hgb 31.6 pg (27.0-31.0); Mean Corpuscular Volume 91.9 fL (80.0-94.0); Mean Platelet Volume 9.6 fL (7.4-10.4); Nucleated Red Blood Cells % 0 % (-); Platelet Count 184 10^3/uL (130-400); Red Blood Cell Count 4.81 10^6/uL (4.70-6.10); Red Cell Dist. Width 13.4 % (11.5-14.5); White Blood Cell Count 7.4 10^3/uL (4.8-10.8)
[2024-09-21 15:02] LABS: ALT (SGPT) 27 U/L (0-50); AST (SGOT) 31 U/L (17-59); Albumin 4.5 g/dl (3.5-5.0); Alkaline Phosphatase 89 U/L (38-126); Blood Urea Nitrogen 23 mg/dl (9-20); Calcium 10.1 mg/dl (8.4-10.2); Carbon Dioxide 26 mmol/L (22-30); Chloride 109 mmol/L (98-107); Glucose 88 mg/dl (70-99); Potassium 3.8 mmol/L (3.5-5.1); Sodium 143 mmol/L (135-145); Total Bilirubin 1.3 mg/dl (0.2-1.3); Total Protein 7.4 g/dl (6.3-8.2); eGFR 48.04
[2024-09-21 15:07] LABS: TSH Reflex To Free T4 1.88 uIU/ml (0.47-4.68)
== END ==
LOC: REG 13:28
PROVIDERS: ATTENDING PHYSICIAN Internal Medicine Hematology & Oncology; FAMILY PHYSICIAN Nurse Practitioner
DX: C34.12 Malignant neoplasm of upper lobe, left bronchus or lung (principal); J91.0 Malignant pleural effusion; C78.2 Secondary malignant neoplasm of pleura; J20.9 Acute bronchitis, unspecified
CPT/HCPCS: 36415; 80053; 84443; 85025